=== PATIENT | male | born 1985 | race Caucasian/White ===

== ENCOUNTER 2018-03-17 10:05 | Emergency (ER) | payer BC ==
[~2018-03-17] VITALS: Ht 190.5 cm; Wt 123.7 kg
[~2018-03-17 10:05] MED LIST: CARAFATE100 MG/ML PO; PEPCID40 MG PO
[2018-03-17 11:33] VITALS: BP 174/111
== END 2018-03-17 11:34 | disposition home or self-care (01) ==
LOC: EME 10:05
DX: S61.412A Laceration without foreign body of left hand, initial encounter (principal); W26.8XXA Contact with other sharp object(s), not elsewhere classified, initial encounter; Y99.0 Civilian activity done for income or pay; Z23 Encounter for immunization
CPT/HCPCS: 99281; 99283